=== PATIENT | male | born 1970 ===

== ENCOUNTER 2019-04-14 08:18 | Outpatient (CLI) | payer OTHER ==
[~2019-04-14] VITALS: Ht 182.9 cm; Wt 152.9 kg
== END 2019-04-14 08:35 | disposition home or self-care (01) ==
LOC: OFIC 805 08:18
DX: H90.71 Mixed conductive and sensorineural hearing loss, unilateral, right ear, with unrestricted hearing on the contralateral side (principal)

== ENCOUNTER 2019-06-16 07:51 | Outpatient (CLI) | payer OTHER ==
[~2019-06-16] VITALS: Ht 182.9 cm; Wt 152.0 kg
== END 2019-06-16 08:10 | disposition home or self-care (01) ==
LOC: OFIC 805 07:51
DX: H90.71 Mixed conductive and sensorineural hearing loss, unilateral, right ear, with unrestricted hearing on the contralateral side (principal)